=== PATIENT | female | born 1970 | race Hispanic/Latino ===

== ENCOUNTER 2018-08-12 03:41 | Emergency (ER) | payer SELFPAY ==
[~2018-08-12] VITALS: Ht 144.8 cm; Wt 71.0 kg
[~2018-08-12 03:41] MED LIST: COMBIVIR 1501 COMBO PO; PERCOCET 5/325M1 TAB OR; ULTRAM50 MG OR; [UNRECOGNIZED DRUG - REMARK]
[2018-08-12] MEDS ORDERED: METFORMIN500 MG PO (04:08)
[2018-08-12 04:24] LABS: HEMATOCRIT 36.9 % (37.0-47.0); HEMOGLOBIN 12.4 g/dl (12.0-16.0); IMMATURE GRANULOCYTES 0.2 % (0.0-5.0); MEAN CELL VOLUME 89.1 fL CALC (80.0-100.0); MEAN CORPUSCULAR HGB CONC 33.6 g/L CALC (32.0-36.0); NEUT# 8.63 thou/uL (2.00-7.15); RED BLOOD COUNT 4.14 mill/uL (4.20-5.60); RED CELL DISTRI WIDTH 14.2 % (11.5-15.5)
[2018-08-12 04:37] LABS: ALBUMIN 3.9 g/dL (3.2-5.0); ALKALINE PHOSPHATASE 124 u/l (38-126); AMYLASE 57 u/l (30-110); ANION GAP 13 (6-22 (CALC)); BILIRUBIN, TOTAL 0.9 mg/dL (0.0-1.4); BUN 11 mg/dL (7-17); BUN/CREATININE RATIO 25 (12-20 (CALC)); CARBON DIOXIDE 26 mmol/l (22-30); CHLORIDE 101 mmol/l (95-108); CREATININE 0.4 mg/dL (0.5-1.0); GFR > 60 ML/MIN (>=60 (CALC)); GFR FOR AFR.AMER. > 60 ML/MIN (>=60 (CALC)); LIPASE 51 u/l (23-300); POTASSIUM 3.8 mmol/l (3.5-5.1); SGOT/AST 24 u/l (14-36); SODIUM 136 mmol/l (137-146); TOTAL PROTEIN 8.1 g/dL (6.3-8.2)
[2018-08-12 05:16] LABS: URINE BILIRUBIN - DIPSTICK NEGATIVE (NEGATIVE); URINE BLOOD DIPSTICK MODERATE (NEGATIVE); URINE COLOR YELLOW; URINE GLUCOSE - DIPSTICK >=1000 mg/dL (NEGATIVE); URINE KETONE 15 mg/dL (NEGATIVE); URINE PROTEIN - DIPSTICK 100 mg/dL (NEG-TRACE); URINE UROBILINOGEN - DIPSTICK 0.2 E.U./dL (0.2)
[2018-08-12 05:18] LABS: URINE CLARITY TURBID; URINE LEUK ESTERASE MODERATE (NEGATIVE); URINE NITRITE - DIPSTICK POSITIVE (Negative)
[2018-08-12 05:25] LABS: URINE RBC 0-2 RBC/hpf (0-5); URINE WBC >100 WBC/hpf (0-5)
[2018-08-12 05:26] LABS: URINE BACTERIA MANY hpf; URINE SQUAMOUS EPITHELIAL CELL FEW EPI/hpf (0-FEW)
[2018-08-12] MEDS ORDERED: TRAMADOL HCL50 MG PO (05:47)
[2018-08-12] MEDS ORDERED: DIFLUCAN150 MG PO (05:47)
[2018-08-12] MEDS ORDERED: METRONIDAZOL500 MG PO (05:47)
[2018-08-12] MEDS ORDERED: CIPROFLOXACN500 MG PO (05:47)
[2018-08-12 06:12] VITALS: BP 109/58
== END 2018-08-12 06:12 | disposition home or self-care (01) | DRG 690 ==
LOC: ED 03:41 → EDBD 03:41 → ED 04:02
PROVIDERS: Family Medicine
DX: N39.0 Urinary tract infection, site not specified (principal); K57.32 Diverticulitis of large intestine without perforation or abscess without bleeding; R10.32 Left lower quadrant pain; R11.0 Nausea; R30.0 Dysuria; B96.20 Unspecified Escherichia coli [E. coli] as the cause of diseases classified elsewhere; Z16.12 Extended spectrum beta lactamase (ESBL) resistance; B37.3 Candidiasis of vulva and vagina